=== PATIENT | female | born 1990 | race Caucasian/White ===

== ENCOUNTER 2019-12-10 09:54 | Outpatient (CLI) | payer BC ==
--- NOTE | 2019-12-10 11:31 | RAD ---
Hysterosalpingogram HISTORY: Infertility. FINDINGS: After explaining the procedure and answering all questions, the uterine cervix was carefull y exposed and prepped. HSG catheter was advanced to the lower uterine segment, with some initial difficulty in passing the dilator and catheter through the cervical canal. As water-soluble contrast was initially instilled, there was significant difficulty in initiating the opacification of the endometrial cavity. With gradual pressure, there was sudden release, and then contrast quickly filled a normal appearing endometrial cavity. At that point, there was quick opacification of the fallopian tubes and bilateral free spill. Excess contrast was aspirated and catheter removed. Patient tolerated the procedure well and was dism issed in good condition. IMPRESSION : Patent bilateral fallopian tubes. Initial difficulty in passing the catheter through the cervix and and contrast distention of the endo metrial cavity concerning for some component of cervical/lower uterine segment stenosis.
[2019-12-10] MEDS ORDERED: Iopamidol 300 61% 50 ML VIAL FS ONE (15:50)
== END 2019-12-10 09:55 | disposition home or self-care (01) ==
LOC: RAD 09:54
PROVIDERS: ATTEND Obstetrics & Gynecology
DX: N97.9 Female infertility, unspecified (principal); N85.8 Other specified noninflammatory disorders of uterus
CPT/HCPCS: 58340; 74740; Q9967